=== PATIENT | male | born 1965 | race Caucasian/White ===

== ENCOUNTER 2016-11-01 15:02 | Emergency (ER) | payer BC ==
[~2016-11-01] VITALS: Ht 188 cm; Wt 172.6 kg
[~2016-11-01 15:02] MED LIST: AMLO5TAB PO; ASPI-917 PO; DIAZ5TAB PO; Gabapentin PO; HYDR-4072 PO; HYDROCHLOROTHIAZIDE PO; LISINOPRIL PO; MELO-267 PO; MULT1TAB77 PO; OXYC-426 PO; OXYC-544 PO; POLY17PO6 PO
[2016-11-01 15:03] VITALS: TEMP 98.2; Ht 188 cm; Wt 172.6 kg
--- OUTSIDE RECORDS SUMMARY | 2016-11-01 15:06 | XMS REPORT | Continuity of Care Document ---
Author Author [facility] Organization [facility] Address Unknown Phone Unavailable Support Name Relationship Address Phone ALYSON DORSEY MD Caregiver [address] [facility] [address] [place] [phone] NANI ANTHONY MD Caregiver [address] [facility] [address] [place], [place] [id number] STEPHON KNIGHT Next Of Kin [address] [place], [place] [address] Insurance Providers Payer Name Policy Number Subscriber Name Relationship [employer] Other [id number] Zaira Knight 17 Self Advance Directives Directive Response Recorded Date/Time Advanced Directives Type None 12/24/13 5:56am Ordered Resuscitation Status Full Code 12/23/13 2:47pm Chief Complaint and Reason for Visit Chief Complaint RT TOTAL KNEE ARTHROPLASTY Reason for Visit Degenerative arthritis of right knee Obesity, morbid, BMI 40.0-49.9 Problems Medical Problems Problem Onset Date Status Degenerative arthritis of right knee Unknown Active Obesity, morbid, BMI 40.0-49.9 Unknown Active Medications Medication Dose Route Sig Days/Qty Instructions Order Date Discontinued Date Status Amlodipine Besylate 5 Mg PO DAILY 30 Qty 12/23/13 Active Hydrocodone Bit/Acetaminophen 1 Tab PO NEEDED 100 Qty 12/23/13 Discontinued Lisinopril/Hydrochlorothiazide 1 Tab PO TWICE A DAY 60 Qty 12/23/13 Discontinued [Gabapentin] 300 Mg PO TWICE A DAY 28 Qty 12/27/13 Active [Lisinopril/Hydrochlorothiazide] 2 Tab PO DAILY 12/27/13 Active Multivits,Th W-Fe,Other Min 1 Tab PO DAILY 30 Qty 12/27/13 Active Oxycodone HCl 5-15 Mg PO Every 3 Hours PRN BREAKTHROUGH PAIN 60 Qty Active Polyethylene Glycol 3350 17 Gm PO DAILY 30 Days 12/27/13 Active Oxycodone HCl 1 Tab PO EVERY 12 HOURS For PAIN 28 Qty 12/27/13 Active Aspirin 325 Mg PO TWICE A DAY 84 Qty 12/27/13 Active Diazepam 5 Mg PO Every 6 Hours PRN pain or spasm. 30 Qty 12/27/13 Active Social History Social History Problem Response Recorded Date/Time Smoking Status Current some day smoker 12/24/2013 5:57am Chewing Tobacco Status No 12/23/2013 1:45pm Hx Substance Use N HX OF 12/23/2013 1:45pm Hx Alcohol Use Y RARELY 12/23/2013 1:45pm Has the pt used tobacco in the last 12 months Yes 12/24/2013 5:57am Hospital Discharge Instructions Instructions: Care Instructions: Reason for Hospitalization: right total knee replacement I was in the hospital because (patient own words): knee replacement Discharge Diet: Regular Discharge Activity: *Activity as tolerated using walker. *Use CPM at least 3 times a time, no more then 3 hours at a time for comfort. *Ice pack to knee for comfort. *Continue to stay active once home to prevent blood clots and pneumonia. Follow Up Appointments: 01/15/14 AT 9:30 AM FOR RT TKA WITH ( ) 12/30/13 AT 11:45AM FOR OUTPATIENT PHYSICAL THERAPY WITH PINNACLE Wound/Incision Care: May shower however do not soak in a tub. Leave dressing on until doctor appoinment, doctor will remove dressing. Durable Medical Equipment: Walker and CPM machine Notify Physician If: Call doctor if you notice drainage from site, more pain then usual, fever present, or more redness and swelling. Condition at time of discharge: Good Care Plan Discharge Patient: Goal: Pain is contolled Patient Instructions: see patient instructions Increase cardio excercise Patient Instructions: see patient instructions 1.Chest pain, difficulty breathing, fever>100.5 degrees, chills, heart rate >100, confusion, or persistent nausea/vomitting. 2.Severe pain, swelling, redness, or warmth in either of your legs. 3.During office hours, call [phone] 4. After hours, please call [facility] at [phone], and have the pill machine operator page your Surgeon IN THE EVENT OF AN EMERGENCY, seek medical care at the nearest Emergency Room Condition at time of discharge: Good Care Plan Discharge Patient: Goal: Maximum functional status Patient Instructions: see patient instructions Plan of Care Discharge Date 12/29/13 11:24am Disposition 01 DISCHARGED HOME, SELF-CARE Instructions[place] [facility] [place] Prescriptions See Medications Section Functional Status Query Response Date Recorded Physical Hygiene Self December 29, 2013 10:41am Disabilities None December 29, 2013 10:41am Devices Used Walker December 29, 2013 10:41am Dressing Self December 29, 2013 10:41am Ambulation Self December 29, 2013 10:41am Diet Self December 29, 2013 10:41am Mental Status Alert Oriented December 29, 2013 10:41am Disabilities None December 29, 2013 10:41am Devices Used Walker December 29, 2013 10:41am Physical Hygiene Self December 29, 2013 10:41am Dressing Self December 29, 2013 10:41am Ambulation Self December 29, 2013 10:41am Diet Self December 29, 2013 10:41am Allergies, Adverse Reactions, Alerts Allergen Type Severity Reaction Status Last Updated Penicillin Allergy Intermediate RASH Active 12/24/13 Immunizations Name Given Type Hx Influenza Vaccination Y 06/2013 Historical Hx Pneumococcal Vaccination No Historical Hx Influenza Vaccination Y 06/2013 Historical Vital Signs Acute Vital Signs Vital Response Date/Time Temperature (Fahrenheit) 96.2 deg F (96.8 - 99.1) Temperature (Calculated Celsius) 35.51996 degrees C (36.0 - 37.3) Temperature Source Oral Pulse Rate (adult) 92 bpm (60 - 100) Respiratory Rate 20 breaths/min (10 - 20) Height 6 ft 2 in Weight 361 lb Body Mass Index 46.0 kg/m^2 Results Test Source Date Result Interp. Ref. Range Comments Activated Partial Thromboplast Time December 16, 2013 5:45pm 31.7 SEC N 24- 36 Alanine Aminotransferase (ALT/SGPT) November 22, 2007 5:30am 25 U/L DN 21- 72 Albumin November 22, 2007 5:30am 3.6 G/DL N 3.5-5.0 Albumin/Globulin Ratio November 22, 2007 5:30am 1.1 RATIO N 1.1-2.2 Alkaline Phosphatase November 22, 2007 5:30am 64 U/L N 38-126 Amylase Level November 19, 2007 9:13am 45 U/L N 30-110 Anion Gap December 28, 2013 5:10pm 7 MEQ/L N 5-15 Aspartate Amino Transf (AST/SGOT) November 22, 2007 5:30am 29 U/L DN 14-59 BUN/Creatinine Ratio December 28, 2013 5:10pm 13 RATIO N 6-26 Band Neutrophils # November 22, 2007 5:30am 0.0 T/MM3 - Band Neutrophils % November 22, 2007 5:30am 0.0 % N 0-6 Basophils # (Auto) December 27, 2013 4:35am 0.1 T/MM3 N 0-0.2 Basophils # (Manual) November 22, 2007 5:30am 0.1 T/MM3 N 0-0.2 Basophils % (Manual) November 22, 2007 5:30am 2.0 % N 0-2 Basophils (%) (Auto) December 27, 2013 4:35am 0.5 % N 0-2 Blood Urea Nitrogen December 28, 2013 5:10pm 12.0 MG/DL N 9-20 C-Reactive Protein November 22, 2007 5:30am 24.6 MG/L H 3-10 Calcium Level December 28, 2013 5:10pm 8.8 MG/DL N 8.4-10.2 Calculated Osmolality December 28, 2013 5:10pm 265 MOSM/KG N 261-280 Carbon Dioxide Level December 28, 2013 5:10pm 33 MEQ/L H 22-30 Chemistry Specimen Hemolysis December 28, 2013 5:10pm < 15 0-25 0-25: No Hemolysis.26-70: Slight Hemolysis - can falsely elevate K and Urine Protein. 71-285: Moderate Hemolysis - can falsely elevate K, Troponin I, CA 19-9, PTH, CSF GLucose, and Urine Protein, and can falsely decrease Phenytoin. 286-999: Gross Hemolysis - can falsely elevate K, Troponin I, CA 19-9, PTH, CSF Glucose, and Urine Protine, and can falsely decrease Phenytoin. Recommend specimen recollection. Chloride Level December 28, 2013 5:10pm 97 MEQ/L L 98-107 Conjugated Bilirubin November 19, 2007 9:13am 0.0 MG/DL N 0.0-0.3 Creatinine December 28, 2013 5:10pm 0.9 MG/DL N 0.8-1.5 Eosinophils # (Auto) December 27, 2013 4:35am 0.5 T/MM3 N 0-0.5 Eosinophils # (Manual) November 22, 2007 5:30am 0.1 T/MM3 N 0-0.5 Eosinophils % (Manual) November 22, 2007 5:30am 1.0 % N 0-4 Eosinophils (%) (Auto) December 27, 2013 4:35am 4.7 % H 0-4 Erythrocyte Sedimentation Rate December 16, 2013 5:45pm 9 MM/HR N 0-15 Globulin November 22, 2007 5:30am 3.3 G/DL N 2-3.6 Glomerular Filtration Rate Calc December 28, 2013 5:10pm 90 - Glucose Level December 28, 2013 5:10pm 108 MG/DL N 75-110 Hematocrit December 27, 2013 4:35am 35.2 % L 41-53 Hemoglobin December 27, 2013 4:35am 11.8 GM/DL L 13.5-17.5 Icterus Index December 28, 2013 5:10pm < 2 0-7 Immature Granulocyte # (Auto) December 27, 2013 4:35am 0.12 T/MM3 H 0.00- 0.03 Immature Granulocyte % (Auto) December 27, 2013 4:35am 1.3 % H 0.0-0.5 Lab Scanned Report December 16, 2013 8:09pm LAB TEST FORM REQUEST [id number] - Lipase November 19, 2007 9:13am 36 U/L N 23-300 Lymphocytes # (Auto) December 27, 2013 4:35am 2.7 T/MM3 N 1-4.8 Lymphocytes # (Manual) November 22, 2007 5:30am 2.3 T/MM3 N 1-4.8 Lymphocytes % (Manual) November 22, 2007 5:30am 37.0 % N 23-45 Lymphocytes (%) (Auto) December 27, 2013 4:35am 28.1 % N 23-45 MRSA Specimen Source November 19, 2013 12:50pm Nasal - Mean Corpuscular Hemoglobin December 27, 2013 4:35am 30.1 UUG N 26-34 Mean Corpuscular Hemoglobin Concent December 27, 2013 4:35am 33.5 GM/DL N 31 -37 Mean Corpuscular Volume December 27, 2013 4:35am 89.8 UM3 N 80-100 Mean Platelet Volume December 27, 2013 4:35am 9.7 UM3 N 9.4-12.4 Methicillin-Resist S.aureus DNA PCR November 19, 2013 12:50pm Negative - Monocytes # (Auto) December 27, 2013 4:35am 1.1 T/MM3 H 0-0.8 Monocytes # (Manual) November 22, 2007 5:30am 0.5 T/MM3 N 0-0.8 Monocytes % (Manual) November 22, 2007 5:30am 8.0 % N 0-9.0 Monocytes (%) (Auto) December 27, 2013 4:35am 11.5 % H 0-9.0 Neutrophils # (Auto) December 27, 2013 4:35am 5.1 T/MM3 N 1.8-7.7 Neutrophils # (Manual) November 22, 2007 5:30am 3.3 T/MM3 N 1.8-7.7 Neutrophils % (Manual) November 22, 2007 5:30am 52.0 % N 33-66 Neutrophils (%) (Auto) December 27, 2013 4:35am 53.9 % N 33-66 Platelet Count December 27, 2013 4:35am 224 T/MM3 N 130-400 Potassium Level December 28, 2013 5:10pm 4.5 MEQ/L DN 3.6-5 Prothromb Time International Ratio December 16, 2013 5:45pm 0.95 N 0.81- 1.09 THERAPUTIC RANGE=2.00-3.00 FOR ANTI-THROMBOSIS THERAPUTIC RANGE=2.50- 3.50 FOR IMPLANTED VALVE RDW Standard Deviation December 27, 2013 4:35am 43.2 FL N 36.9-50.2 Red Blood Count December 27, 2013 4:35am 3.92 M/MM3 L 4.50-5.90 Sodium Level December 28, 2013 5:10pm 137 MEQ/L N 134-144 Total Bilirubin November 22, 2007 5:30am 0.6 MG/DL N 0.2-1.3 Total Protein November 22, 2007 5:30am 6.8 G/DL N 6.3-8.2 Turbidity December 28, 2013 5:10pm < 20 0-20 Unconjugated Bilirubin November 19, 2007 9:13am 1.3 MG/DL H 0.0-1.1 Urine Amorphous Urates November 19, 2007 11:58am Moderate - Has specimen been collected/obtained? Y Urine Bacteria December 16, 2013 5:45pm Trace H - Urine Bilirubin December 16, 2013 5:45pm Negative - Urine Blood December 16, 2013 5:45pm 2+ H - Urine Collection Type December 16, 2013 5:45pm Voided-not cc-midstr - Urine Color December 16, 2013 5:45pm Yellow - Urine Glucose (UA) December 16, 2013 5:45pm Negative - Urine Ketones December 16, 2013 5:45pm Negative - Urine Leukocyte Esterase December 16, 2013 5:45pm Negative - Urine Mucus December 16, 2013 5:45pm Present - Urine Nitrite December 16, 2013 5:45pm Negative - Urine Protein December 16, 2013 5:45pm Negative - Urine RBC December 16, 2013 5:45pm 1-3 /HPF - Urine Specific [place] December 16, 2013 5:45pm >=1.030 H - Urine Squamous Epithelial Cells December 16, 2013 5:45pm 0-5 - Urine Turbidity December 16, 2013 5:45pm Sl cloudy - Urine Urobilinogen December 16, 2013 5:45pm 0.2 EU/DL - Urine WBC December 16, 2013 5:45pm 1-3 /HPF - Urine pH December 16, 2013 5:45pm 5.5 - White Blood Count December 27, 2013 4:35am 9.5 T/MM3 N 4.5-11.0 Name: ZAIRA KNIGHT Unit #: [id number] : [id number] Sex: M Loc / Svc: MED DOS: Signed Report #: [id number] DIAGNOSTIC IMAGING REPORT TYPE OF EXAM: US VENOUS DUPLEX, LOWER EXT RT Dictated By: BEVERLY HATHAWAY MD INDICATION: ITS.REASON: SWELLING AND PAIN US VENOUS DUPLEX, LOWER EXT RT: Comparison: None Findings: There is no evidence for acute deep venous thrombosis in the right thigh. Specifically, serial graded compression was performed from the inguinal ligament to the popliteal bifurcation, on the right thigh, demonstrating appropriate compressibility of the deep venous system. In addition, color and pulsed Doppler demonstrate appropriate spontaneous flow, variation with respiration, and augmentation with calf compression. At the ankle, normal flow is identified in the posterior tibial veins; these vessels are also normal in caliber. Impression: No evidence of acute DVT in the right lower limb. . Procedures Procedure Status Date Provider(s) Total knee arthroplasty completed 12/24/13 NANI ANTHONY MD Encounters Encounter Location Date/Time Discharged Inpatient [facility] 12/24/13 5:30am Registered Clinic [facility] 12/16/13 5:32pm Registered [facility] 11/19/13 12:47pm Recent Diagnosis Degenerative arthritis of right knee Obesity, morbid, BMI 40.0-49.9
--- OUTSIDE RECORDS SUMMARY | 2016-11-01 15:06 | XMS REPORT ---
Author Evonne Hendrix Organization [employer] Address Unknown Phone Unavailable Care Team Providers Care Manager Finance Name Role Phone Evonne Infante CP Unavailable Allergies, Adverse Reactions, Alerts Substance Reaction Event Type Penicillin G Potassium Info Not Available Drug Allergy Problems Problem Type Condition Code Onset Dates Condition Status Problem Osteoarthritis M19.90 Active Problem HTN (hypertension) I10 Active Problem Insomnia G47.00 Active Assessment Encounter for examination required by Department of Transportation (DOT) Z02.89 Active Medications Medication Code System Code Instructions Start Date End Date Status Dosage [place] [facility] [address]-94 5-325 MG Orally every 6 hrs 1 tablet as needed Zolpidem Tartrate [facility] [address]-64 10 MG Orally Once a day 1 tablet at bedtime as needed Atenolol [facility] [address]-18 50 MG Orally Once a day 1 tablet Lisinopril-Hydrochlorothiazide [facility] [address]-74 20-12.5 MG November 27, 2012 Jun 04, 9999 take 1 tablet by oral route once daily Amlodipine Besylate [facility] [address]-55 5 MG Orally Once a day December 23, 2015 1 tablet Procedures Procedure Coding System Code Date DOT Physical CPT-4 99574 Feb 18, 2016 UA- PART OF DOT CPT-4 00087 Feb 18, 2016 Vital Signs Date/Time: Feb 18, 2016 BMI 45.49 Index Weight 364 lbs Height 6 ft 3 in in Blood Pressure Diastolic 84 mm Hg Blood Pressure Systolic 138 mm Hg Cardiac Monitoring Heart Rate 76 /min Temperature 98.5 F Oximetry 98 % Respiratory Rate 18 /min Results Name Result Date Reference Range Unit Abnormality Flag Urinalysis Complete DOT ----Glucose [id number] ----Protein neg [id number] ----Blood neg [id number] ----S.P [place] 1.025 [id number] Summary Purpose [employer] Submission
--- OUTSIDE RECORDS SUMMARY | 2016-11-01 15:06 | XMS REPORT ---
Author Oswaldo Rollins [facility] [employer] Address Unknown Phone Unavailable Care Team Providers Care Career Development Engineer Name Role Phone Oswaldo Pulliam CP Unavailable Allergies No Known Allergies Problems Problem Type Condition Code Onset Dates Condition Status Problem Osteoarthritis M19.90 Active Problem HTN (hypertension) I10 Active Problem Insomnia G47.00 Active Medications Medication Code System Code Instructions Start Date End Date Status Dosage Zolpidem Tartrate [facility] [address]-00 10 MG Orally Once a day 1 tablet at bedtime as needed Results No Known Results Summary Purpose [employer] Submission
--- OUTSIDE RECORDS SUMMARY | 2016-11-01 15:06 | XMS REPORT ---
Author Author Evonne Infante Organization [facility] Address [address] [place], [place] [id number] Care Team Providers Care Pbx Mechanic Name Role Phone Evonne Infante Unavailable [phone] PROBLEMS Type Condition ICD9-CM Code YTC18-UG Code Onset Dates Condition Status SNOMED Code Problem Insomnia G47.00 Active 081637931 Problem Osteoarthritis M19.90 Active 159816090 Assessment Flu-like symptoms R68.89 Jun, Active 93786670 Problem HTN (hypertension) I10 Active 51301193 Assessment Acute maxillary sinusitis J01.00 Jun, Active 29855809 ALLERGIES Substance Reaction Event Type Date Status Penicillin G Potassium hives Drug Allergy Jun, Active SOCIAL HISTORY No smoking Hx information available PLAN OF CARE VITAL SIGNS Height 6 ft 3 in in 2016-06-13 Weight 372 lbs 2016-06-13 BMI 46.49 kg/m2 2016-06-13 Temperature 98.6 degrees Fahrenheit 2016-06-13 Heart Rate 98 /min 2016-06-13 Oximetry 94 % 2016-06-13 Blood pressure systolic 152 mm Hg 2016-06-13 Blood pressure diastolic 98 mm Hg 2016-06-13 MEDICATIONS Medication Instructions Dosage Frequency Start Date End Date Duration Status Atenolol 50 MG Orally Once a day 1 tablet 24h Active [place] 5-325 MG Orally every 6 hrs 1 tablet as needed 6h 30 days Active Lisinopril-Hydrochlorothiazide 20-12.5 MG take 1 tablet by oral route once daily Nov, Active Doxycycline Monohydrate 100 MG Orally every 12 hrs 1 capsule 12h Jun, Jun, 10 days Active Amlodipine Besylate 5 MG Orally Once a day 1 tablet 24h 30 Active Zolpidem Tartrate 10 MG Orally Once a day 1 tablet at bedtime as needed 24h 30 days Active RESULTS Name Result Date Reference Range Influenza A&B 2016-06-13 Influenza A IgM NEG Influenza B IgM NEG PROCEDURES Procedure Date Ordered Related Diagnosis Body Site INFLUENZA ASSAY WOPTIC Jun 13, 2016 OFFICE VISIT EST PATIENT LEVEL 4 Jun 13, 2016 IMMUNIZATIONS No Known Immunizations
--- OUTSIDE RECORDS SUMMARY | 2016-11-01 15:06 | XMS REPORT | Summary of Care ---
Author Author Valerie Owen, Kerwin Organization Unknown Address Unknown Phone Unavailable Care Team Providers Care Foreign Broadcast Specialist Name Role Phone Kerwin Padilla M.D. Unavailable Unavailable Kerwin Padilla PP Unavailable Unavailable Unavailable Functional Status Functional Status Health Issues* Name Dates Details Functional status health issues are not documented Status: Cognitive Status Health Issues* Name Dates Details Cognitive status health issues are not documented Status: Problems Name Dates Details Pneumonia (486, J18.9) Status: Active Urinary symptom or sign (788.99, R39.9) Status: Active Lumbago (724.2, M54.5) Status: Active Knee pain, chronic, left (719.46, M25.562) Status: Active Chronic knee pain, right (719.46, M25.561) Status: Active Insomnia (780.52, G47.00) Status: Active High risk medication use (V58.69, Z79.899) Status: Active Essential hypertension, benign (401.1, I10) Status: Active Osteoarthritis of both knees, unspecified osteoarthritis type (715.96, M17.0) Status: Active Elevated liver enzymes (790.5, R74.8) Status: Active Tobacco abuse (305.1, Z72.0) Status: Active Morbid obesity (278.01, E66.01) Status: Active Medications Name Dates Details Hydrocodone-Acetaminophen 5-325 MG Oral Tablet TAKE 1 TABLET EVERY 6 HOURS NEEDED.Max 4 per day*MUST LAST 30 DAYSMAY FILL ON OR AFTER 06/02/15* Quantity: 120 Kerwin Padilla M.D.* Started 25-Mar-2015 ActiveZolpidem Tartrate 10 MG Oral Tablet TAKE 1 TABLET AT BEDTIME NEEDED FOR SLEEP.*MUST LAST 30 DAYS*MAY FILL ON OR AFTER 06/02/15* * Quantity: 30 Refills: 0 Kerwin Padilla M.D.* Started 25-Mar-2015 ActiveVoltaren 1 % Transdermal Gel APPLY 4 GM OF GEL TO AFFECTED AREA TWICE DAILY. DO NOT APPLY MORE THAN 16 GM DAILY TO ANY ONE AFFECTED JOINT. * Quantity: 1 Refills: 3 Kerwin Padilla M.D.* Started 25-Mar-2015 [id number] GM Tube Lisinopril-Hydrochlorothiazide 20-12.5 MG Oral Tablet TAKE ONE TABLET BY MOUTH EVERY MORNING AND EVERY EVENING * Quantity: 60 Refills: 6 Kerwin Padilla M.D.* Started 25-Mar-2015 ActiveEvzio 0.4 MG/0.4ML Injection Solution Auto-injector INJECT 0.4MG SC/IM Q 2-3MIN NEEDED PER OVERDOSE * Quantity: 1 Refills: 0 Kerwin Padilla M.D.* Started 25-Mar-2015 Active0.4 ML Package (2 Packages) Atenolol 50 MG Oral Tablet TAKE 1 TABLET DAILY. * Quantity: 30 Refills: 6 Kerwin Padilla M.D.* Started 04-May-2015 Active Allergies and Adverse Reactions Name Dates Details Penicillins Status: Active Past Medical History Name Dates Details History of hypertension (V12.59, Z86.79) Status: Resolved History of Knee joint replacement status (V43.65, Z96.659) Status: Resolved History of Knee pain (719.46, M25.569) Status: Resolved History of rheumatoid arthritis (V13.4, Z87.39) Status: Resolved History of seasonal allergies (V15.09, Z88.9) Status: Resolved History of Stomach problems (536.9, K31.9) Status: Resolved Procedures Procedure Dates Details History of Knee Surgery Hepatitis Panel (4) [id number] Ordered:04-May-2015 Immunization Name Dates Details Fluvirin Intramuscular Injectable Administered on:27-Mar-2015 Family History Grandmother* Name Dates Details Family history of myocardial infarction (V17.3, Z82.49) Status: Active Grandmother* Name Dates Details Family history of cerebrovascular accident (CVA) (V17.1, Z82.3) Status: Active Grandfather* Name Dates Details Family history of Automobile accident (E819.9, V89.2XXA) Status: Active Social History Name Dates Details Smoking Status* Current some day smoker Vital Signs Date Test Result Details 04-May-2015 10:50 BP Systolic 156 mm[Hg] Status: BP Diastolic 102 mm[Hg] Status: Heart Rate 88 /min Status: Respiration Rate 20 /min Status: Height 74 in Status: Weight 374 lb Status: O2 SAT 97 % Status: Body Mass Index Calculated 48.02 kg/m2 Status: Body Surface Area Calculated 2.84 m2 Status: Results Date Description Value Details 04-May-2015 10:04 CBC w/ Auto Diff 7150 Comments: Fastin hours WBC 9.2 K/uL (Better) Range: 4.5-11.0 RBC 5.47 mil/uL (Above high threshold) Range: 4.20-5.40 HGB 16.1 g/dL (Better) Range: 14.0-18.0 HCT 48.8 % (Better) Range: 42.0-53.0 MCV 89.2 fL (Better) Range: 80.0-99.0 MCH 29.4 pg (Better) Range: 27.3-32.5 MCHC 32.9 % (Better) Range: 32.0-36.0 RDW 14.0 % (Better) Range: 11.6-14.8 PLATELETS 260 K/uL (Better) Range: 150-400 MPV 7.2 fL (Better) Range: 6.0-11.0 %NEUTRO 61.4 % (Better) Range: 37.0-80.0 %LYMPHS 29.8 % (Better) Range: 13.0-50.0 %MONO 4.2 % (Better) Range: 0.0-12.0 %EOS 1.9 % (Better) Range: 0.0-7.0 %BASO 0.6 % (Better) Range: 0.0-2.5 %LENNIE 2.2 % (Better) Range: 0.0-5.0 NEUTRO 5.6 K/uL (Better) Range: 2.0-6.9 LYMPHS 2.7 K/uL (Better) Range: 0.6-3.4 MONOS 0.4 K/uL (Better) Range: 0.0-0.9 EOS 0.2 K/uL (Better) Range: 0.0-0.7 BASO 0.1 K/uL (Better) Range: 0.0-0.2 10:31 Comprehensive Metabolic Panel 1212 Comments: Fastin hours SODIUM 137 mmol/L (Better) Range: 133-144 POTASSIUM 3.8 mmol/L (Better) Range: 3.5-5.1 CHLORIDE 101 mmol/L (Better) Range: 98-110 CARBON DIOXIDE 25.1 mmol/L (Better) Range: 23.0-33.0 ANION GAP 11 mmol/L (Better) Range: 6-16 BUN 9 mg/dL (Better) Range: 7-18 CREATININE, SERUM 0.83 mg/dL (Better) Range: 0.70-1.30 Comments: Please note new reference ranges effective 2014.----- BUN:CREATININE RATIO 11 (Better) EST GFR, >60 ml/min (Better) Range: >60 EST GFR, NON-AFR TUVALUAN >60 ml/min (Better) Range: >60 Comments: EST GFR is reported in ml/min per 1.73 m2 of body surface area. For -Kosovan, please multiple result by 1.2.----- GLUCOSE 93 mg/dL (Better) Range: 70-100 ALK PHOSPHATASE 78 U/L (Better) Range: 46-116 TOTAL BILIRUBIN 0.80 mg/dL (Better) Range: 0.20-1.00 AST 59 U/L (Above high threshold) Range: 8-35 ALT 94 U/L (Above high threshold) Range: 16-63 Comments: Please note new reference ranges. Effective 08/14/2014.----- ALBUMIN 3.7 g/dL (Better) Range: 3.4-5.0 TOTAL PROTEIN 8.0 g/dL (Better) Range: 6.4-8.2 A/G RATIO 0.9 units (Below low threshold) Range: 1.0-1.8 CALCIUM 8.6 mg/dL (Better) Range: 8.5-10.1 10:31 LIPID PROFILE 1184 Comments: Fastin hours CHOLESTEROL 147 mg/dL (Better) Range: <200 TRIGLYCERIDES 116 mg/dL (Better) Range: 30-200 HDL Cholesterol 54 mg/dL (Better) Range: >39 NON HDL CHOLESTEROL 93 (Better) CARDIAC RSK FACTOR 2.7 units (Below low threshold) Range: 4.4-5.0 LDL - CALCULATED 70 mg/dL (Better) Range: 0-130 10:51 THYROID STIM. HORMONE 3602 Comments: Fastin hours THYROID STIM. HORMONE 0.496 uIU/mL (Below low threshold) Range: 0.550- 4.780 Comments: PLEASE NOTE: Patients undergoing fuorescein dye angiography within the last 72 hours can produce falsely depressed TSH values with current methodology.No established reference ranges for infants and children <2 years of age----- Plan of Care Planned Observations* Name Dates Details Planned Goals not documented Goal Planned Encounters* Appointment; Provider: Kerwin Padilla On 29-Jun-2015 09:15 Instructions * Instructions not documented Encounters Appointment; Kerwin Padilla Encounter Diagnosis: Problem not documented On 04-May-2015 10:15 Appointment; Kerwin Padilla Encounter Diagnosis: Problem not documented On 25-Mar-2015 11:00 Appointment; Oswaldo Sweeney Encounter Diagnosis: Problem not documented On 31-Oct-2014 11:15 Appointment; Farideh Babcock Encounter Diagnosis: Problem not documented On 29-Jul-2014 12:45
--- OUTSIDE RECORDS SUMMARY | 2016-11-01 15:06 | XMS REPORT ---
Author Author Mame Pulliam Organization [employer] Address Unknown Phone Unavailable Care Team Providers Care Head Stock Transfer Clerk Name Role Phone Mame Pulliam CP Unavailable Allergies, Adverse Reactions, Alerts Substance Reaction Event Type Penicillin G Potassium Info Not Available Drug Allergy Problems Problem Type Condition ICD-9 Code Onset Dates Condition Status Assessment Health examination of defined subpopulation V70.5 Active Problem Health examination of defined subpopulation V70.5 Active Medications Medication Code System Code Instructions Start Date End Date Status Dosage Lisinopril-Hydrochlorothiazide NDC 0 20-12.5 mg November 27, 2012 Jun 04, 9999 take 1 tablet by oral route once daily Procedures Procedure Coding System Code Date UA- PART OF DOT CPT-4 99509 November 24, 2014 DOT PHYSICAL CPT-4 95735 November 24, 2014 Vital Signs Date/Time: November 24, 2014 BMI 45.94 Index Weight 367.6 lbs Height 75 in Blood Pressure Diastolic 108 mm Hg Blood Pressure Systolic 144 mm Hg Cardiac Monitoring Heart Rate 88 /min Temperature 98.1 F Oximetry 97 % Respiratory Rate 20 /min Results No Known Results Summary Purpose [employer] Submission
--- OUTSIDE RECORDS SUMMARY | 2016-11-01 15:06 | XMS REPORT | Summary of Care ---
Author Author Farideh Babcock APRN Organization Unknown Address [address] [place], [place] [id number] Phone Unavailable Care Team Providers Care Liberal Arts Teacher Name Role Phone Farideh Babcock APRN Unavailable Unavailable Pt Confirmed No Assigned PCP PP Unavailable Unavailable Unavailable Functional Status Functional Status Health Issues* Name Dates Details Functional status health issues are not documented Status: Cognitive Status Health Issues* Name Dates Details Cognitive status health issues are not documented Status: Problems Name Dates Details Cough (786.2, R05) Status: Active Pneumonia (486, J18.9) Status: Active Medications Name Dates Details Levofloxacin 500 MG Oral Tablet TAKE 1 TABLET DAILY. Quantity: 7 Farideh Babcock MEDICAL RECEPTIONIST* Started 29-Jul-2014 Ended 05-Aug-2014 Active Allergies and Adverse Reactions Name Dates Details Penicillins Status: Active Past Medical History Name Dates Details History of hypertension (V12.59, Z86.79) Status: Resolved Procedures Procedure Dates Details Procedures not documented Immunization Name Dates Details Immunizations not documented Social History Smoking Status* Unknown if ever smoked Vital Signs Date Test Result Details 29-Jul-2014 12:54 BP Systolic 137 mm[Hg] Status: BP Diastolic 97 mm[Hg] Status: Heart Rate 102 /min Status: Temperature 97.7 f Status: O2 SAT 95 % Status: Results Date Description Value Details 29-Jul-2014 13:44 XRay CHEST-PA & LAT Comments: Exam Date: 13: 26Dictation Date: 13:44 X CHEST PA & LAT (Better) 13:46 INFLUENZA A/B ANTIGEN 5320 Comments: *Negative results do not exclude Influenza viral infection and could be confirmed with viral culture or Influenza molecular assays. Physician order would be required.* *INFLUENZA A/B ANTIGEN Negative (Better) Range: Negative Plan of Care Planned Observations* Name Dates Details Planned Goals not documented Goal Instructions * Instructions not documented Encounters Appointment; Farideh Babcock Encounter Diagnosis: Problem not documented On 29-Jul-2014 12:45
--- OUTSIDE RECORDS SUMMARY | 2016-11-01 15:06 | XMS REPORT ---
Author Author Oswaldo Pulliam Organization [facility] Address [address] [place], [place] [id number] Care Team Providers Care Harnessmaker Apprentice Name Role Phone Oswaldo Pulliam Unavailable [phone] PROBLEMS Type Condition ICD9-CM Code LUR10-YG Code Onset Dates Condition Status SNOMED Code Problem Eczema L30.9 Active 45431052 Problem Erectile dysfunction N52.9 Active 709201055 Problem HTN (hypertension) I10 Active 26276549 Problem Insomnia G47.00 Active 975461406 Problem Osteoarthritis M19.90 Active 345725920 ALLERGIES Unknown Allergies SOCIAL HISTORY No smoking Hx information available PLAN OF CARE VITAL SIGNS MEDICATIONS Medication Instructions Dosage Frequency Start Date End Date Duration Status Zolpidem Tartrate 10 MG Orally Once a day 1 tablet at bedtime as needed 24h 30 days Active RESULTS No Results PROCEDURES No Known procedures IMMUNIZATIONS No Known Immunizations
--- OUTSIDE RECORDS SUMMARY | 2016-11-01 15:06 | XMS REPORT | Summary of Care ---
Author Author Valerie Owen, Kerwin Organization Unknown Address Unknown Phone Unavailable Care Team Providers Care Aviation Technician Aircraft Name Role Phone Kerwin Padilla M.D. Unavailable [...] Status: Active Lumbago (724.2, M54.5) Status: Active Essential hypertension, benign (401.1, I10) Status: Active Knee pain, chronic, left (719.46, M25.562) Status: Active Chronic knee pain, right (719.46, M25.561) Status: Active Insomnia (780.52, G47.00) Status: Active Tobacco abuse (305.1, Z72.0) Status: Active Morbid obesity (278.01, E66.01) Status: Active High risk medication use (V58.69, Z79.899) Status: Active Medications Name Dates Details Hydrocodone-Acetaminophen 5-325 MG Oral Tablet TAKE 1 TABLET EVERY 6 HOURS NEEDED.*Max 4 per day* Quantity: 120 Kerwin Paidlla M.D.* Started 25-Mar-2015 ActiveZolpidem Tartrate 10 MG Oral Tablet TAKE 1 TABLET AT BEDTIME NEEDED FOR SLEEP.*MUST LAST 30 DAYS* * Quantity: 30 Refills: 0 Kerwin Padilla M.D.* Started 25-Mar-2015 ActiveVoltaren 1 % Transdermal Gel APPLY 4 GM OF GEL TO AFFECTED AREA TWICE DAILY. DO NOT APPLY MORE THAN 16 GM DAILY TO ANY ONE AFFECTED JOINT. * Quantity: 1 Refills: 3 Kerwin Padilla M.D.* Started 25-Mar-2015 [id number] GM Tube Lisinopril-Hydrochlorothiazide 20-12.5 MG Oral Tablet TAKE ONE TABLET BY MOUTH EVERY MORNING AND EVERY EVENING * Quantity: 60 Refills: 6 Kerwin Padilla M.D.* Started 25-Mar-2015 ActiveEvzio 0.4 MG/0.4ML Injection Solution Auto-injector INJECT 0.4MG SC/IM Q 2-3MIN NEEDED PER OVERDOSE * Quantity: 1 Refills: 0 Kerwin Padilla M.D.* Started 25-Mar-2015 Active0.4 ML Package (2 Packages) Allergies and Adverse Reactions Name Dates Details [...] Procedure Dates Details History of Knee Surgery CBC w/ Auto Diff 7150 Ordered:31-Mar-2015 Comprehensive Metabolic Panel 1212 Ordered:31-Mar-2015 LIPID PROFILE 1184 Ordered:31-Mar-2015 THYROID STIM. HORMONE 3602 Ordered:31-Mar-2015 Immunization Name Dates Details Fluvirin Intramuscular Injectable [...] smoker Vital Signs Date Test Result Details No Known Vitals to report Results Date Description Value Details Results not documented Plan of Care Planned Observations* Name Dates Details Planned Goals not documented Goal Instructions * Instructions not documented Encounters Appointment; Kerwin Padilla Encounter Diagnosis: Problem not documented On 25-Mar-2015 11:00 Appointment; Oswaldo Sweeney Encounter Diagnosis: Problem not documented On 31-Oct-2014 11:15 Appointment; Farideh Babcock Encounter Diagnosis: Problem not documented On 29-Jul-2014 12:45
--- OUTSIDE RECORDS SUMMARY | 2016-11-01 15:06 | XMS REPORT | Summary of Care ---
Author Author Oswaldo Sweeney D.O. Organization Unknown Address [address], [place] [id number] Phone Unavailable Care Team Providers Care Adjunct Communications Faculty Member Name Role Phone No Assigned PCP-Pt Confirmed PP Unavailable Unavailable Unavailable Functional Status Functional Status Health Issues* Name Dates Details Functional status health issues are not documented Status: Cognitive Status Health Issues* Name Dates Details Cognitive status health issues are not documented Status: Problems Name Dates Details Cough (786.2, R05) Status: Active Pneumonia (486, J18.9) Status: Active Urinary symptom or sign (788.99, R39.89) Status: Active Lumbago (724.2, M54.5) Status: Active Dysuria (788.1, R30.0) Status: Active Blood in urine (599.70, R31.9) Status: Active Medications Name Dates Details Medication not documented Allergies and Adverse Reactions Name Dates Details Penicillins Status: Active Past Medical History Name Dates Details History of hypertension (V12.59, Z86.79) Status: Resolved Procedures Procedure Dates Details Urinalysis, Reflex to Microscopic or Culture PRN 8005 Ordered:31-Oct-2014 ULTRASOUND RENAL SONO Ordered:31-Oct-2014 Immunization Name Dates Details Immunizations not documented Social History Smoking Status* Unknown if ever smoked Vital Signs Date Test Result Details 31-Oct-2014 11:45 BP Systolic 124 mm[Hg] Status: BP Diastolic 94 mm[Hg] Status: Heart Rate 82 /min Status: O2 SAT 95 % Status: Results Date Description Value Details 31-Oct-2014 11:32 Urinalysis, Reflex to Microscopic or Culture PRN 8005 pH 6.5 (Better) Range: 5.0-7.5 SP GRAVITY 1.025 (Better) Range: 1.010-1.030 APPEARANCE CLEAR (Better) Range: Clear COLOR YELLOW (Better) Range: Straw-Yellow PROTEIN NEGATIVE mg/dL (Better) Range: Negative-Trace GLUCOSE NEGATIVE mg/dL (Better) Range: Negative KETONE NEGATIVE mg/dL (Better) Range: Negative BILIRUB NEGATIVE (Better) Range: Negative BLOOD NEGATIVE (Better) Range: Negative UROBIL 1.0 EU/dL (Better) Range: 0.2-1.0 NITRITE NEGATIVE (Better) Range: Negative LEUK TRACE (Abnormal) Range: Negative 11:32 Urine Microscopic UMIC RBC 11-20 /HPF (Abnormal) Range: 0-2 MUCUS 1+ /LPF (Better) Range: Negative-2+ EPITH 0-2 /HPF (Better) Range: 0-10 Plan of Care Planned Observations* Name Dates Details Planned Goals not documented Goal Instructions * Instructions not documented Encounters Appointment; Oswaldo Sweeney Encounter Diagnosis: Problem not documented On 31-Oct-2014 11:15 Appointment; Farideh Babcock Encounter Diagnosis: Problem not documented On 29-Jul-2014 12:45
--- OUTSIDE RECORDS SUMMARY | 2016-11-01 15:06 | XMS REPORT ---
Author Oswaldo Rollins Organization [employer] Address Unknown Phone Unavailable Care Team Providers Care Lapping Machine Operator Name Role Phone Oswaldo Pulliam CP Unavailable Allergies No Known Allergies Problems Problem Type Condition Code Onset Dates Condition Status Problem Osteoarthritis M19.90 Active Problem HTN (hypertension) I10 Active Problem Insomnia G47.00 Active Medications No Known Medications Results No Known Results Summary Purpose [employer] Submission
--- OUTSIDE RECORDS SUMMARY | 2016-11-01 15:06 | XMS REPORT ---
Author Oswaldo Rollins Organization [employer] Address Unknown Phone Unavailable Care Team Providers Care Admission Nurse Name Role Phone Oswaldo Pulliam CP Unavailable Allergies No Known Allergies Problems Problem Type Condition Code Onset Dates Condition Status Problem Osteoarthritis M19.90 Active Problem HTN (hypertension) I10 Active Problem Insomnia G47.00 Active Medications No Known Medications Results No Known Results Summary Purpose [employer] Submission
--- OUTSIDE RECORDS SUMMARY | 2016-11-01 15:07 | XMS REPORT ---
Author Oswaldo Rollins [facility] [employer] Address Unknown Phone Unavailable Care Team Providers Care Automotive Welder Name Role Phone Oswaldo Pulliam CP Unavailable Allergies, Adverse Reactions, Alerts Substance Reaction Event Type Penicillin G Potassium Info Not Available Drug Allergy Problems Problem Type Condition Code Onset Dates Condition Status Problem Osteoarthritis M19.90 Active Problem HTN (hypertension) I10 Active Problem Insomnia G47.00 Active Assessment Hematuria R31.9 Active Assessment Insomnia G47.00 Active Assessment HTN (hypertension) I10 Active Assessment Osteoarthritis M19.90 Active Medications Medication Code System Code Instructions Start Date End Date Status Dosage Atenolol [facility] [address]-57 50 MG Orally Once a day 1 tablet Lisinopril-Hydrochlorothiazide [facility] [address]-97 20-12.5 MG November 27, 2012 Jun 04, 9999 take 1 tablet by oral route once daily Amlodipine Besylate [facility] [address]-84 5 MG Orally Once a day December 23, 2015 1 tablet Zolpidem Tartrate [facility] [address]-49 10 MG Orally Once a day 1 tablet at bedtime as needed Hydrocodone-Acetaminophen [facility] [address]-85 5-325 MG Orally every 6 hrs December 23, 2015 Jan 22, 2016 1 tablet as needed Procedures Procedure Coding System Code Date OFFICE VISIT EST PATIENT LEVEL 3 CPT-4 01122 Jan 22, 2016 URINALYSIS, AUTO W/SCOPE CPT-4 52567 Jan 22, 2016 Vital Signs Date/Time: Jan 22, 2016 BMI 45.92 Index Weight 367.4 lbs Height 75 in Blood Pressure Diastolic 88 mm Hg Blood Pressure Systolic 138 mm Hg Cardiac Monitoring Heart Rate 66 /min Temperature 98.4 F Respiratory Rate 18 /min Results Name Result Date Reference Range Unit Abnormality Flag Urinalysis with Microscopic ----Epithelial Cells 0-2 [id number] /HPF ----WBC, Urine 0-2 [id number] 0-4 /HPF ----Specific [place] 1.019 20160122 1.003-1.030 ----Bilirubin Negative 20160122 Negative ----Nitrites Negative 20160122 Negative ----Protein Negative 20160122 Negative ----Blood Negative 20160122 Negative ----Urobilinogen 0.2 20160122 <1.0 mg/dL ----pH 5.5 20160122 5.0-8.0 ----RBC, Urine 0-4 [id number] 0-4 /HPF ----Leukocyte Esterase Negative 20160122 Negative ----Appearance Clear 20160122 ----Color Yellow 20160122 ----Glucose, Urine Negative 20160122 Negative ----Ketones Negative 20160122 Negative Summary Purpose [employer]ClinicalWorks Submission
--- OUTSIDE RECORDS SUMMARY | 2016-11-01 15:07 | XMS REPORT ---
Author Oswaldo Rollins Organization [facility] Address [address] [place], [place] [address] Care Team Providers Care Registered Safety Engineer Name Role Phone Heraclio Oswaldo Unavailable [phone] PROBLEMS Type Condition ICD9-CM Code [id number] Code Onset Dates Condition Status SNOMED Code Problem Eczema L30.9 Active 75055112 Problem Erectile dysfunction N52.9 Active 007050529 Problem HTN (hypertension) I10 Active 57226854 Assessment HTN (hypertension) I10 Jul, Active 77634082 Problem Insomnia G47.00 Active 713523119 Problem Osteoarthritis M19.90 Active 246005085 ALLERGIES Substance Reaction Event Type Date Status Penicillin G Potassium hives Drug Allergy Jul, Active SOCIAL HISTORY No smoking Hx information available PLAN OF CARE Activity Details Pending Test Free T4 Pending Test Total T3 3 Months,Reason: VITAL SIGNS Height 6 ft 3 in in 2016-07-18 Weight 375.2 lbs 2016-07-18 BMI 46.89 kg/m2 2016-07-18 Temperature 97.5 degrees Fahrenheit 2016-07-18 Heart Rate 64 /min 2016-07-18 Respiratory Rate 18 /min 2016-07-18 Blood pressure systolic 130 mm Hg 2016-07-18 Blood pressure diastolic 98 mm Hg 2016-07-18 MEDICATIONS Medication Instructions Dosage Frequency Start Date End Date Duration Status Triamcinolone Acetonide 0.5 % Externally Twice a day as needed 1 application to affected area Jul, 30 days Active Atenolol 50 MG Orally Once a day 1 tablet 24h Active Viagra 100 MG Orally Once a day 1 tablet as needed 24h Jul,Jul 05 days Active Zolpidem Tartrate 10 MG Orally Once a day 1 tablet at bedtime as needed 24h 30 days Active Lisinopril-Hydrochlorothiazide 10-12.5 MG TAKE 1 TABLET BY MOUTH EVERY MORNING AND TAKE 1 TABLET EVERY EVENING Active Amlodipine Besylate 5 MG Orally Once a day 1 tablet 24h 30 Active Cecil 5-325 MG Orally every 6 hrs 1 tablet as needed 6h 30 days Active RESULTS Name Result Date Reference Range CBC With Platelet and Differential 2016-07-18 WBC 9.0 4.8-10.8 RBC 5.22 4.60-6.20 HGB 15.0 14.0-18.0 HCT 46.2 42.0-52.0 MCV 88.5 82.0-99.0 MCH 28.7 27.0-32.0 MCHC 32.5 32.0-36.0 RDW 13.6 11.5-14.5 MPV 10.1 8.8-14.8 Platelet Count 269 150-400 Immature Granulocytes 0.6 0.0-1.0 Absolute Neutrophils 5.71 1.90-7.00 Absolute Lymphocytes 2.32 0.80-3.30 Absolute Monocytes 0.73 0.30-1.00 Absolute Eosinophils 0.16 0.00-0.50 Absolute Basophils 0.02 0.00-0.20 Neutrophils 64 51-75 Lymphocytes 26 20-46 Monocytes 8 4-11 Eosinophils 2 0-4 Basophils 0 0-2 Comprehensive Metabolic Panel (CMP) 2016-07-18 Glucose 91 70-99 BUN 10 8-26 Creatinine 0.77 0.72-1.25 Calcium 9.4 8.4-10.2 Sodium 141 135-144 Potassium 3.7 3.5-5.2 Chloride 102 99-111 CO2 27 23-31 Albumin 4.1 3.5-5.0 Bilirubin Total 0.9 0.2-1.2 Alkaline Phosphatase 69 40-150 Protein 7.4 6.1-7.7 ALT (SGPT) 41 0-55 AST (SGOT) 25 5-34 Anion Gap 12 3-20 Globulin 3.3 1.8-4.0 Lipid Panel 2016-07-18 Cholesterol 144 0-199 Triglycerides 251 0-149 HDL Cholesterol 42 40-84 LDL Cholesterol 52 0-130 VLDL Cholesterol 50 0-28 Cardiac Risk 3.4 0.0-5.7 Non-HDL Cholesterol 2016-07-18 Non-HDL Cholesterol 102 0-159 TSH 2016-07-18 TSH 0.30 0.35-4.94 eGFR 2016-07-18 eGFR >60 >60 Venipuncture 2016-07-18 Testosterone 2016-07-18 Testosterone 310 723-285 PROCEDURES Procedure Date Ordered Related Diagnosis Body Site ROUTINE VENIPUNCTURE Jul 18, 2016 ASSAY THYROID STIM HORMONE Jul 18, 2016 OFFICE VISIT EST PATIENT LEVEL 4 Jul 18, 2016 COMPREHEN METABOLIC PANEL Jul 18, 2016 LIPID PANEL Jul 18, 2016 ASSAY OF TOTAL TESTOSTERONE Jul 18, 2016 COMPLETE CBC WAUTO DIFF WBC Jul 18, 2016 IMMUNIZATIONS No Known Immunizations
--- OUTSIDE RECORDS SUMMARY | 2016-11-01 15:07 | XMS REPORT ---
Author Oswaldo Rollins [facility] eClinicalWorks Address Unknown Phone Unavailable Care Team Providers Care Billing And Quality Technician Name Role Phone Oswaldo Pulliam CP Unavailable Allergies No Known Allergies Problems Problem Type Condition Code Onset Dates Condition Status Problem Osteoarthritis M19.90 Active Problem HTN (hypertension) I10 Active Problem Insomnia G47.00 Active Medications Medication Code System Code Instructions Start Date End Date Status Dosage [facility] [address]-69 5-325 MG Orally every 6 hrs 1 tablet as needed Results No Known Results Summary Purpose eClinicalWorks Submission
--- OUTSIDE RECORDS SUMMARY | 2016-11-01 15:07 | XMS REPORT ---
Author Author Veronica uHgo [facility] Address [address] [place], [place] [address] Care Team Providers Care Graduate Assistant Athletic Trainer Name Role Phone Veronica Hugo Unavailable [phone] PROBLEMS Type Condition ICD9-CM Code [id number] Code Onset Dates Condition Status SNOMED Code Problem Eczema L30.9 Active 01526738 Problem Erectile dysfunction N52.9 Active 764341225 Problem HTN (hypertension) I10 Active 81287742 Problem Insomnia G47.00 Active 724694116 Problem Osteoarthritis M19.90 Active 135288342 ALLERGIES Unknown Allergies SOCIAL HISTORY No smoking Hx information available PLAN OF CARE VITAL SIGNS MEDICATIONS Medication Instructions Dosage Frequency Start Date End Date Duration Status [place] 5-325 MG Orally every 6 hrs 1 tablet as needed 6h 30 days Active RESULTS No Results PROCEDURES No Known procedures IMMUNIZATIONS No Known Immunizations
--- OUTSIDE RECORDS SUMMARY | 2016-11-01 15:07 | XMS REPORT ---
Author Oswaldo Rollins [facility] eClinicalWorks Address Unknown Phone Unavailable Care Team Providers Care In Store Marketing Associate Name Role Phone Oswaldo Pulliam CP Unavailable Allergies No Known Allergies Problems Problem Type Condition Code Onset Dates Condition Status Problem Osteoarthritis M19.90 Active Problem HTN (hypertension) I10 Active Problem Insomnia G47.00 Active Medications Medication Code System Code Instructions Start Date End Date Status Dosage [facility] [address]-76 5-325 MG Orally every 6 hrs 1 tablet as needed Results No Known Results Summary Purpose eClinicalWorks Submission
--- OUTSIDE RECORDS SUMMARY | 2016-11-01 15:07 | XMS REPORT ---
Author Author Christa Florez [facility] Address [address] [place], [place] [address] Care Team Providers Care Hogshead Mat Inspector Name Role Phone Christa Florez Unavailable [phone] PROBLEMS Type Condition ICD9-CM Code [id number]-WO Code Onset Dates Condition Status SNOMED Code Problem Eczema L30.9 Active 88782865 Problem Erectile dysfunction N52.9 Active 871754495 Problem HTN (hypertension) I10 Active 93225876 Assessment Routine general medical examination at a health care facility Z00.00 Sep, Active 161036606 Problem Insomnia G47.00 Active 075986932 Problem Osteoarthritis M19.90 Active 177632876 ALLERGIES Unknown Allergies SOCIAL HISTORY No smoking Hx information available PLAN OF CARE VITAL SIGNS MEDICATIONS Medication Instructions Dosage Frequency Start Date End Date Duration Status Amlodipine Besylate 5 MG Orally Once a day 1 tablet 24h 30 Active Lisinopril-Hydrochlorothiazide 10-12.5 MG TAKE 1 TABLET BY MOUTH EVERY MORNING AND TAKE 1 TABLET EVERY EVENING Active Atenolol 50 MG Orally Once a day 1 tablet 24h Active Zolpidem Tartrate 10 MG Orally Once a day 1 tablet at bedtime as needed 24h 30 days Active [place] 5-325 MG Orally every 6 hrs 1 tablet as needed 6h 30 days Active Triamcinolone Acetonide 0.5 % Externally Twice a day as needed 1 application to affected area Jul, 30 days Active RESULTS No Results PROCEDURES Procedure Date Ordered Related Diagnosis Body Site Collection of drug screen September 21, 2016 ASSAY OF BREATH ETHANOL September 21, 2016 IMMUNIZATIONS No Known Immunizations
--- OUTSIDE RECORDS SUMMARY | 2016-11-01 15:07 | XMS REPORT | Summary of Care ---
Author Author Valerie Owen, Kerwin Organization Unknown Address Unknown Phone Unavailable Care Team Providers Care Credit Verifier Name Role Phone Kerwin Padilla M.D. Unavailable [...] NEEDED.*Max 4 per day* Quantity: 120 Kerwin Padilla M.D.* Started 25-Mar-2015 [...] Refills: 3 Kerwin Padilla M.D.* Started 25-Mar-2015 [id number] GM Tube Lisinopril-Hydrochlorothiazide 20-12.5 MG Oral Tablet [...] Procedure Dates Details History of Knee Surgery XRay KNEE-Left Ordered:25-Mar-2015 Immunization Name Dates Details Immunizations not documented Family History Grandmother* Name Dates Details Family history of myocardial infarction (V17.3, Z82.49) Status: Active Grandmother* Name Dates Details Family history of cerebrovascular accident (CVA) (V17.1, Z82.3) Status: Active Grandfather* Name Dates Details Family history of Automobile accident (E819.9, V89.2XXA) Status: Active Social History Name Dates Details Smoking Status* Current some day smoker Vital Signs Date Test Result Details 25-Mar-2015 11:32 BP Systolic 182 mm[Hg] Status: BP Diastolic 120 mm[Hg] Status: Heart Rate 102 /min Status: Respiration Rate 20 /min Status: Height 74 in Status: Weight 372.125 lb Status: O2 SAT 95 % Status: Body Mass Index Calculated 47.78 kg/m2 Status: Body Surface Area Calculated 2.83 m2 Status: Results Date Description Value Details Results not [...]
--- OUTSIDE RECORDS SUMMARY | 2016-11-01 15:07 | XMS REPORT ---
Author Oswaldo Rollins Organization eClinicalWorks Address Unknown Phone Unavailable Care Team Providers Care Online Marketing Strategist Name Role Phone Oswaldo Pulliam CP Unavailable Allergies, Adverse Reactions, Alerts Substance Reaction Event Type Penicillin G Potassium Info Not Available Drug Allergy Problems Problem Type Condition Code Onset Dates Condition Status Problem HTN (hypertension) I10 Active Assessment HTN (hypertension) I10 Active Problem Osteoarthritis M19.90 Active Assessment Osteoarthritis M19.90 Active Medications Medication Code System Code Instructions Start Date End Date Status Dosage Amlodipine Besylate [facility] [address]-95 5 MG Orally Once a day December 23, [address] [facility] [address]-89 20-12.5 MG November 27, 2012 Jun 04, 9999 take 1 tablet by oral route once daily Atenolol [facility] [address]-31 50 MG Orally Once a day 1 tablet Hydrocodone-Acetaminophen [facility] [address]-88 5-325 MG Orally every 6 hrs December 23, 2015 Jan 22, 2016 1 tablet as needed Zolpidem Tartrate [facility] [address]-84 10 MG Orally Once a day 1 tablet at bedtime as needed [place] [facility] [address]-82 5-325 MG Orally every 6 hrs 1 tablet as needed Procedures Procedure Coding System Code Date OFFICE VISIT EST PATIENT LEVEL 3 CPT-4 82955 December 23, 2015 Vital Signs Date/Time: December 23, 2015 BMI 46.09 Index Weight 368.8 lbs Height 75 in Blood Pressure Diastolic 110 mm Hg Blood Pressure Systolic 142 mm Hg Cardiac Monitoring Heart Rate 62 /min Temperature 98.2 F Respiratory Rate 18 /min Results No Known Results Summary Purpose eClinicalWorks Submission
--- OUTSIDE RECORDS SUMMARY | 2016-11-01 15:07 | XMS REPORT | Summary of Care ---
Author Author Kerwin Padilla M.D. Organization Unknown Address Unknown Phone Unavailable Care Team Providers Care Coal Deliverer Name Role Phone Kerwin Padilla M.D. Unavailable Unavailable Kerwin Padilla PP Unavailable Unavailable Unavailable Functional Status Functional Status Health Issues* Name Dates Details Functional status health issues are not documented Status: Cognitive Status Health Issues* Name Dates Details Cognitive status health issues are not documented Status: Problems Name Dates Details High risk medication use (V58.69, Z79.899) Status: Active Elevated liver enzymes (790.5, R74.8) Status: Active Essential hypertension, benign (401.1, I10) Status: Active Osteoarthritis of both knees, unspecified osteoarthritis type (715.96, M17.0) Status: Active Morbid obesity (278.01, E66.01) Status: Active Acute bacterial pharyngitis (462, J02.8) Status: Active Insomnia (780.52, G47.00) Status: Active Medications Name Dates Details Hydrocodone-Acetaminophen 5-325 MG Oral Tablet TAKE 1 TABLET EVERY 6 HOURS NEEDED.Max 4 per day*MUST LAST 30 DAYSMAY FILL ON OR AFTER 09/29/15* Quantity: 120 Kerwin Padilla M.D.* Started 25-Mar-2015 ActiveZolpidem Tartrate 10 MG Oral Tablet TAKE 1 TABLET AT BEDTIME NEEDED FOR SLEEP.*MUST LAST 30 DAYS*MAY FILL ON OR AFTER 09/29/15* * Quantity: 30 Refills: 0 Kerwin Padilla M.D.* Started 25-Mar-2015 ActiveLisinopril-Hydrochlorothiazide 20-12.5 MG Oral Tablet TAKE ONE TABLET [...] Refills: 6 Kerwin Padilla M.D.* Started 04-May-2015 ActiveZithromax Z-[place] 250 MG Oral Tablet TAKE 2 TABLETS ON DAY 1 THEN TAKE 1 TABLET A DAY FOR 4 DAYS. * Quantity: 1 Refills: 0 Kerwin Padilla M.D.* Started 28-Aug-2015 Ended 02-Sep-2015 Active6 Tablet Disp Pack Allergies and Adverse Reactions Name Dates Details [...] Procedure Dates Details History of Knee Surgery Procedures not documented Immunization Name Dates Details Diphtheria-Tetanus Toxoids 6.7-5 LFU/0.5ML Intramuscular Injectable Administered on:16-Aug-2013 Fluvirin Intramuscular Injectable Administered on:27-Mar-2015 Family History [...] smoker Vital Signs Date Test Result Details 28-Aug-2015 09:55 BP Systolic 150 mm[Hg] Status: BP Diastolic 110 mm[Hg] Status: Heart Rate 77 /min Status: Respiration Rate 20 /min Status: Height 74 in Status: Weight 369.5 lb Status: O2 SAT 97 % Status: Body Mass Index Calculated 47.44 kg/m2 Status: Body Surface Area Calculated 2.82 m2 Status: Results Date Description Value Details Results not documented Plan of Care Planned Observations* Name Dates Details Planned Goals not documented Goal Instructions * Instructions not documented Encounters Appointment; Kerwin Padilla Encounter Diagnosis: Problem not documented On 28-Aug-2015 09:15 Appointment; Kerwin Padilla Encounter Diagnosis: Problem not documented On 29-Jun-2015 09:15 Appointment; Kerwin Padilla Encounter Diagnosis: Problem not documented On 04-May-2015 10:15 Appointment; Kerwin Padilla Encounter Diagnosis: Problem not documented On 25-Mar-2015 11:00 Appointment; Oswaldo Sweeney Encounter Diagnosis: Problem not documented On 31-Oct-2014 11:15 Appointment; Farideh Babcock Encounter Diagnosis: Problem not documented On 29-Jul-2014 12:45
--- OUTSIDE RECORDS SUMMARY | 2016-11-01 15:07 | XMS REPORT ---
Author Author Oswaldo Pulliam Organization [facility] Address [address] [place], [place] [address] Care Team Providers Care Correctional Supply Supervisor Name Role Phone Oswaldo Pulliam Unavailable [phone] PROBLEMS Type Condition ICD9-CM Code RJB52-OR Code Onset Dates Condition Status SNOMED Code Problem Eczema L30.9 Active 28459163 Problem Erectile dysfunction N52.9 Active 933973453 Problem HTN (hypertension) I10 Active 37288315 Problem Insomnia G47.00 Active 896807554 Problem Osteoarthritis M19.90 Active 390966475 ALLERGIES Unknown Allergies SOCIAL HISTORY No smoking Hx information available PLAN OF CARE VITAL SIGNS MEDICATIONS Medication Instructions Dosage Frequency Start Date End Date Duration Status [place] 5-325 MG Orally every 6 hrs 1 tablet as needed 6h 30 days Active RESULTS No Results PROCEDURES No Known procedures IMMUNIZATIONS No Known Immunizations
--- OUTSIDE RECORDS SUMMARY | 2016-11-01 15:07 | XMS REPORT ---
Author Evonne Hendrix Organization eClinicalWorks Address Unknown Phone Unavailable Care Team Providers Care Elementary Reading Tutor Name Role Phone Evonne Infante CP Unavailable Allergies No Known Allergies Problems Problem Type Condition Code Onset Dates Condition Status Problem Osteoarthritis M19.90 Active Problem HTN (hypertension) I10 Active Problem Insomnia G47.00 Active Medications No Known Medications Results No Known Results Summary Purpose eClinicalWorks Submission
--- OUTSIDE RECORDS SUMMARY | 2016-11-01 15:07 | XMS REPORT ---
Author Oswaldo Rollins Organization eClinicalWorks Address Unknown Phone Unavailable Care Team Providers Care Oxygen Equipment Technician Name Role Phone Oswaldo Pulliam CP Unavailable Allergies No Known Allergies Problems Problem Type Condition Code Onset Dates Condition Status Problem Osteoarthritis M19.90 Active Problem HTN (hypertension) I10 Active Problem Insomnia G47.00 Active Medications No Known Medications Results No Known Results Summary Purpose eClinicalWorks Submission
--- OUTSIDE RECORDS SUMMARY | 2016-11-01 15:07 | XMS REPORT ---
Author Oswaldo Rollins [facility] eClinicalWorks Address Unknown Phone Unavailable Care Team Providers Care Air Filler Name Role Phone Oswaldo Pulliam CP Unavailable Allergies No Known Allergies Problems Problem Type Condition Code Onset Dates Condition Status Problem Osteoarthritis M19.90 Active Problem HTN (hypertension) I10 Active Problem Insomnia G47.00 Active Medications Medication Code System Code Instructions Start Date End Date Status Dosage Zolpidem Tartrate [facility] [address]-57 10 MG Orally Once a day 1 tablet at bedtime as needed [place] [facility] [address]-60 5-325 MG Orally every 6 hrs Mar 19, 2016 1 tablet as needed Results No Known Results Summary Purpose eClinicalWorks Submission
--- OUTSIDE RECORDS SUMMARY | 2016-11-01 15:07 | XMS REPORT ---
Author Author Veronica Hugo [facility] Address [address] [place], [place] [address] Care Team Providers Care Sewer Pipe Offbearer Name Role Phone Veronica Hugo Unavailable [phone] PROBLEMS Type Condition ICD9-CM Code [id number] Code Onset Dates Condition Status SNOMED Code Problem Eczema L30.9 Active 99226733 Problem Erectile dysfunction N52.9 Active 614636924 Problem HTN (hypertension) I10 Active 54875359 Problem Insomnia G47.00 Active 619670098 Problem Osteoarthritis M19.90 Active 507484549 ALLERGIES Unknown Allergies SOCIAL HISTORY No smoking Hx information available PLAN OF CARE VITAL SIGNS MEDICATIONS Medication Instructions Dosage Frequency Start Date End Date Duration Status Zolpidem Tartrate 10 MG Orally Once a day 1 tablet at bedtime as needed 24h 30 days Active RESULTS No Results PROCEDURES No Known procedures IMMUNIZATIONS No Known Immunizations
--- OUTSIDE RECORDS SUMMARY | 2016-11-01 15:07 | XMS REPORT | Summary of Care ---
Author Author Valerie Owen, Kerwin Organization Unknown Address Unknown Phone Unavailable Care Team Providers Care Head Of Merchandise Buying Name Role Phone Kerwin Padilla M.D. Unavailable [...] Active Morbid obesity (278.01, E66.01) Status: Active Tobacco abuse (305.1, Z72.0) Status: Active Elevated liver enzymes (790.5, R74.8) Status: Active Medications Name Dates Details Hydrocodone-Acetaminophen 5-325 MG Oral Tablet TAKE 1 TABLET EVERY 6 HOURS NEEDED.Max 4 per day*MUST LAST 30 DAYSMAY FILL ON OR AFTER 07/30/15* Quantity: 120 Kerwin Padilla M.D.* Started 25-Mar-2015 ActiveZolpidem Tartrate 10 MG Oral Tablet TAKE 1 TABLET AT BEDTIME NEEDED FOR SLEEP.*MUST LAST 30 DAYS*MAY FILL ON OR AFTER 07/30/15* * Quantity: 30 Refills: 0 Kerwin Padilla M.D.* Started 25-Mar-2015 ActiveVoltaren 1 % Transdermal Gel APPLY 4 GM OF GEL TO AFFECTED AREA TWICE DAILY. DO NOT APPLY MORE THAN 16 GM DAILY TO ANY ONE AFFECTED JOINT. * Quantity: 1 Refills: 3 Kerwin Padilla M.D.* Started 25-Mar-2015 [id number] GM Tube Lisinopril-Hydrochlorothiazide 20-12.5 MG Oral Tablet [...] Procedures not documented Immunization Name Dates Details Fluvirin Intramuscular Injectable [...] smoker Vital Signs Date Test Result Details 29-Jun-2015 09:39 BP Systolic 136 mm[Hg] Status: BP Diastolic 90 mm[Hg] Status: Heart Rate 78 /min Status: Respiration Rate 20 /min Status: Height 74 in Status: Weight 369.25 lb Status: O2 SAT 94 % Status: Body Mass Index Calculated 47.41 kg/m2 Status: Body Surface Area Calculated 2.82 m2 Status: Results Date Description Value Details Results not documented Plan of Care Planned Observations* Name Dates Details Planned Goals not documented Goal Planned Encounters* Appointment; Provider: Kerwin Padilla On 28-Aug-2015 09:15 Instructions * Instructions not documented Encounters [...]
--- OUTSIDE RECORDS SUMMARY | 2016-11-01 15:07 | XMS REPORT | Summary of Care ---
Author Author Oswaldo Sweeney D.O. Organization Unknown Address [address] [place], [place] [address] Phone Unavailable Care Team Providers Care Manager Java Name Role Phone No Assigned PCP-Pt Confirmed [...] Blood in urine (599.70, R31.9) Status: Active Acute prostatitis (601.0, N41.0) Status: Active Medications Name Dates Details Medication not documented Allergies and Adverse Reactions Name Dates Details Penicillins Status: Active Past Medical History Name Dates Details History of hypertension (V12.59, Z86.79) Status: Resolved Procedures Procedure Dates Details Procedures not documented Immunization Name Dates Details Immunizations not documented Social History Smoking Status* Unknown if ever smoked Vital Signs Date Test Result Details No [...]
--- OUTSIDE RECORDS SUMMARY | 2016-11-01 15:07 | XMS REPORT ---
Author Author Veronica Hugo [facility] Address [address] [place], [place] [address] Care Team Providers Care Croze Cutter Name Role Phone Veronica Hugo Unavailable [phone] PROBLEMS Type Condition ICD9-CM Code NLT01-CG Code Onset Dates Condition Status SNOMED Code Problem Insomnia G47.00 Active 846926433 Problem Osteoarthritis M19.90 Active 427886517 Problem HTN (hypertension) I10 Active 22439150 ALLERGIES Unknown Allergies SOCIAL HISTORY No smoking Hx information available PLAN OF CARE VITAL SIGNS MEDICATIONS Medication Instructions Dosage Frequency Start Date End Date Duration Status [place] 5-325 MG Orally every 6 hrs 1 tablet as needed 6h 30 days Active RESULTS No Results PROCEDURES No Known procedures IMMUNIZATIONS No Known Immunizations
--- OUTSIDE RECORDS SUMMARY | 2016-11-01 15:07 | XMS REPORT ---
Author Oswaldo Rollins [facility] eClinicalWorks Address Unknown Phone Unavailable Care Team Providers Care Residential Concierge Name Role Phone Oswaldo Pulliam CP Unavailable Allergies No Known Allergies Problems Problem Type Condition Code Onset Dates Condition Status Problem Osteoarthritis M19.90 Active Problem HTN (hypertension) I10 Active Problem Insomnia G47.00 Active Medications Medication Code System Code Instructions Start Date End Date Status Dosage Zolpidem Tartrate [facility] [address]-12 10 MG Orally Once a day 1 tablet at bedtime as needed Results No Known Results Summary Purpose eClinicalWorks Submission
--- OUTSIDE RECORDS SUMMARY | 2016-11-01 15:07 | XMS REPORT ---
Author Author Gonsalo Sutton Organization eClinicalWorks Address Unknown Phone Unavailable Care Team Providers Care Mobile Disc Jockey Name Role Phone Gonsalo Sutton CP Unavailable Allergies, Adverse Reactions, Alerts Substance Reaction Event Type N.K.D.A. Info Not Available Non Drug Allergy Problems Problem Type Condition ICD-9 Code Onset Dates Condition Status Assessment Health examination of defined subpopulation V70.5 Active Problem Health examination of defined subpopulation V70.5 Active Medications Medication Code System Code Instructions Start Date End Date Status Dosage Lisinopril-Hydrochlorothiazide Unknown 0 20-12.5 mg November 27, 2012May Active take 1 tablet by oral route once daily Procedures Procedure Coding System Code Date Esstional Function Test CPT-4 EFT Feb 17, 2014 UNLISTED E&M SERVICE CPT-4 61623 Feb 17, 2014 Vital Signs Date/Time: Feb 17, 2014 Weight 342 lbs Height 75 in Blood Pressure Diastolic 92 mm Hg Blood Pressure Systolic 150 mm Hg Cardiac Monitoring Heart Rate 88 /min Temperature 98.1 F Respiratory Rate 20 /min Results TEST-ESSENTIAL FUNCTION TEST Summary Purpose eClinicalWorks Submission
--- OUTSIDE RECORDS SUMMARY | 2016-11-01 15:07 | XMS REPORT | Summary of Care ---
Author Author Oswaldo Sweeney D.O. Organization Unknown Address [address] [place], [place] [address] Phone Unavailable Care Team Providers Care Bone Process Operator Name Role Phone Dari Sweeney D.O. Unavailable Unavailable No Assigned PCP-Pt Confirmed PP Unavailable Unavailable [...] N41.0) Status: Active Medications Name Dates Details Ciprofloxacin HCl - 500 MG Oral Tablet TAKE 1 TABLET TWICE DAILY. Quantity: 20 Oswaldo Sweeney D.O.* Started 31-Oct-2014 Ended Active Allergies and Adverse Reactions Name Dates Details Penicillins Status: Active Past Medical History Name Dates Details History of hypertension (V12.59, Z86.79) Status: Resolved Procedures Procedure Dates Details Urinalysis, Reflex to Microscopic or Culture PRN 8005 Ordered:31-Oct-2014 Immunization Name Dates Details Immunizations not [...] Negative-2+ EPITH 0-2 /HPF (Better) Range: 0-10 12:47 ULTRASOUND RENAL SONO Comments: Exam Date: 10/31/2014 12: 30Dictation Date: 10/31/2014 12:47 XS RENAL SONO (Better) Plan of Care Planned Observations* Name Dates Details Planned Goals not documented Goal Instructions * Instructions not documented Encounters Appointment; Oswaldo Sweeney Encounter Diagnosis: Problem not documented On 31-Oct-2014 11:15 Appointment; Farideh Babcock Encounter Diagnosis: Problem not documented On 29-Jul-2014 12:45
--- OUTSIDE RECORDS SUMMARY | 2016-11-01 15:07 | XMS REPORT | Summary of Care ---
Author Author Oswaldo Sweeney D.O. Organization Unknown Address [address] [place], [place] [address] Phone Unavailable Care Team Providers Care Lobsterman Name Role Phone No Assigned PCP-Pt Confirmed [...] symptom or sign (788.99, R39.89) Status: Active Medications Name Dates Details Medication [...]
--- OUTSIDE RECORDS SUMMARY | 2016-11-01 15:08 | XMS REPORT ---
Author Oswaldo Rollins Organization eClinicalWorks Address Unknown Phone Unavailable Care Team Providers Care Senior Managing Director Name Role Phone Oswaldo Pulliam CP Unavailable Allergies No Known Allergies Problems Problem Type Condition Code Onset Dates Condition Status Problem Osteoarthritis M19.90 Active Problem HTN (hypertension) I10 Active Problem Insomnia G47.00 Active Medications No Known Medications Results No Known Results Summary Purpose eClinicalWorks Submission
--- OUTSIDE RECORDS SUMMARY | 2016-11-01 15:08 | XMS REPORT | Summary of Care ---
Author Author Valerie Owen, Kerwin Organization Unknown Address Unknown Phone Unavailable Care Team Providers Care Bridge Club Manager Name Role Phone Kerwin Padilla M.D. Unavailable [...] Refills: 3 Kerwin Padilla M.D.* Started 25-Mar-2015 [id number] GM Tube Lisinopril-Hydrochlorothiazide 20-12.5 MG Oral Tablet [...] History of Knee Surgery Hepatitis Panel (4) [id number] Ordered:04-May-2015 Immunization Name Dates Details Fluvirin Intramuscular [...] ml/min (Better) Range: >60 EST GFR, NON-AFR [place] >60 ml/min (Better) Range: >60 Comments: EST GFR is reported in ml/min per 1.73 m2 of body surface area. For -[place], please multiple result by 1.2.----- GLUCOSE 93 [...]
[2016-11-01] MEDS ORDERED: ATEN50TA PO (15:25)
[2016-11-01] MEDS ORDERED: LISI1TAB11 PO (15:27)
[2016-11-01] MEDS ORDERED: HYDR-3989 PO (15:28)
--- NOTE | 2016-11-01 15:30 | NUR ---
REPORT TO DEMETRIS MILLAN
--- OUTSIDE RECORDS SUMMARY | 2016-11-01 15:44 | XMS REPORT | Continuity of Care Document ---
Author Author [facility] Organization [facility] Address Unknown Phone Unavailable Support Name Relationship Address Phone ALYSON DORSEY MD Caregiver [address] [place] [phone] NANI ANTHONY MD Caregiver [address] [place], [place] [id number] STEPHON KNIGHT Next Of Kin [address] [place], [place] [id number] Insurance Providers Payer Name Policy Number Subscriber Name Relationship [employer] Other [id number] Zaira Knight 17 Self Advance Directives Directive [...] of your legs. 3.During office hours, call [phone] 4. After hours, please call [facility] at [phone], and have the mill control operator page your Surgeon IN THE EVENT OF AN EMERGENCY, seek medical care at the nearest Emergency Room Condition at time of discharge: Good Care Plan Discharge Patient: Goal: Maximum functional status Patient Instructions: see patient instructions Plan of Care Discharge Date 12/29/13 11:24am Disposition 01 DISCHARGED HOME, SELF-CARE Instructions/Education Provided [facility] Orthopedic Dismissal Prescriptions See Medications Section Functional [...] F (96.8 - 99.1) Temperature (Calculated Celsius) 35.76670 degrees C (36.0 - 37.3) Temperature Source [...] 16, 2013 8:09pm LAB TEST FORM REQUEST [id number] - Lipase November 19, 2007 9:13am 36 [...] 2013 5:45pm 1-3 /HPF - Urine Specific [place] December 16, 2013 5:45pm >=1.030 H - [...] N 4.5-11.0 Name: ZAIRA KNIGHT Unit #: [id number] : [id number] Sex: M Loc / Svc: MED DOS: Signed Report #: [id number] DIAGNOSTIC IMAGING REPORT TYPE OF EXAM: US [...] MD Encounters Encounter Location Date/Time Discharged Inpatient [facility] 12/24/13 5:30am Registered Clinic [facility] 12/16/13 5:32pm Registered [facility] 11/19/13 12:47pm Recent Diagnosis Degenerative arthritis of right knee Obesity, morbid, BMI 40.0-49.9
--- NOTE | 2016-11-01 16:07 | ERPDOC ---
Departure Disposition Decision Date: November 01, 2016 Disposition Decision Time: 17:06 Disposition: 01 DISCHARGED HOME, SELF-CARE Impression Impression Impression: Primary Impression: Back pain Back pain location: back pain in unspecified location Chronicity: chronic Back pain laterality: unspecified Qualified Codes: G89.29 - Other chronic pain; M54.9 - Dorsalgia, unspecified Severity: Moderate Condition: Improved Seen By: Physician only Referrals: ALYSON DORSEY MD (Family) 1 Day Patient Instructions: Back Pain (ED) Problems/Meds/Labs Reviewed?: Yes Medications reviewed and manag: Yes Follow up care ordered?: Yes Mental Status: Alert, Oriented Scripts Naproxen (Naprosyn) 500 Mg Tablet 1 TAB PO BID Y for PAIN for 10 Days, #20 TAB 0 Refills Prov: WIN GARNETT DO 11/01/16 Hydrocodone/Acetaminophen (Chestnut 7.5-325 Tablet) 7.5-325 Tablet 1 TAB PO Q4HR Y for PAIN for 3 Days, #18 TAB 0 Refills Prov: IWN GARNETT DO 11/01/16 Cyclobenzaprine HCl (Cyclobenzaprine HCl) 10 Mg Tablet 10 MG PO TID Y for MUSCLE SPASM for 5 Days, #15 TAB 0 Refills Prov: WIN GARNETT DO 11/01/16 HPI - Back Pain General Chief Complaint: Back Pain or Injury Stated Complaint: SEVERE BACK BACK PAIN Time Seen by Provider: 15:25 Source: patient Exam Limitations: no limitations HPI - Back Pain Initial Comments 51-year-old male presents to the emergency department with a chief complaint of back pain. Patient noted onset of symptoms over 1 month ago. Symptoms have been persisted in nature since onset. Patient notes that he works as a driver lifter of sanitation truck and pulls on hoses from his truck on a daily basis which exacerbates the pain. Patient noted the onset of pain one day after pulling on the hoses. Patient describes his pain as sharp. It is moderate in nature. No radiation. It is spasmodic. Patient notes that the pain improves with Chestnut. He denies any other complaints or associated symptoms. No trauma or injury. Patient denies any numbness, tingling, fever, chills, saddle anesthesia, loss of bowel or bladder control, IV drug abuse, recent procedures on the spine, abdominal pain, anticoagulation, focal weakness or other warning signs of back pain. Occurred At: home Onset/Timing: Constant Allergies: Coded Allergies: Penicillins (Verified Allergy, Intermediate, RASH, 11/01/16) Past History Past Medical History Metabolic: hypertension Surgical History Joint: knee Family History Family History: Negative Vaccines Hx Influenza Vaccination: Yes (06/2013) Hx Pneumococcal Vaccination: No Social History Smoking Status: Never smoker Substance Use Type: does not use Alcohol Intake: none Review of Systems Constitutional Constitutional: DENIES: chills, fever Eyes General: DENIES: erythema, exudate Lids/Accessories: DENIES: erythema, swelling Vision: DENIES: acuity, blurring ENMT Ears: DENIES: drainage, erythema Hearing: DENIES: hearing loss Balance: DENIES: ataxia, falling to one side Sinuses: DENIES: congestion, pain Nose: DENIES: nosebleeds, pain Mouth/Throat: DENIES: painful swallowing, sore throat Teeth: DENIES: pain Jaw: DENIES: pain Cardiovascular Cardiac: DENIES: chest pain, dyspnea on exertion Rhythm/Rate: DENIES: irregular beat, palpitations Vascular: DENIES: pedal edema, unilateral swelling Pulmonary Respiratory: DENIES: cough, dyspnea, pleuritic chest pain, sputum GI Upper Abdomen: DENIES: nausea, pain, vomiting Lower Abdomen: DENIES: diarrhea, pain General: DENIES: burning, dysuria, frequency, urgency Musculoskeletal General: DENIES: joint pain, tenderness Integumentary Skin: DENIES: itching, rash Neurological General: DENIES: change in strength, headache, numbness, weakness Psychiatric Psychiatric: DENIES: emotional instability, suicidal ideation/attempt Endocrine Endocrine: DENIES: polydipsia, polyphagia Hematologic/Lymphatic Hematologic/Lymphatic: DENIES: frequent nosebleeds, lymphadenopathy Allergic/Immunological Allergic/Immunoligical: DENIES: allergic reactions, hives Physical Exam General General Nourishment: well nourished, well developed, appears stated age, no acute distress, adult General Body Habitus: well groomed Vitals and Pain First Documented Vital Signs Date Time Temp Pulse Resp B/P Pulse Ox O2 Delivery O2 Flow Rate FiO2 11/01/16 15:03 98.2 97 16 144/85 94 Room Air Weight: Kilograms: 172.600 Height (feet): 6 Height (inches): 2.00 Triage Pain Scale: RN VS reviewed by Provider: Yes Normal Exams: Head: Normocephalic w/o trauma Eyes: Pupils are PERRLA w/ EOMI, No scleral icterus, irritation, or foreign bodies noted ENMT: No facial trauma, nasal exudates, pharyngeal erythema, or exudates are noted Dental: No fractured, loose, or missing teeth noted Neck: Full range of motion, without adenopathy, JVD, bruits or thyromegaly Chest/Resp: Clear all holm, with good airflow, and symmetry bilaterally CV: Regular rate and rhythm, without murmur or gallop, Pulses 2+ all extremities, capillary refill, <2 seconds all ext., no pedal edema noted Abdomen: Bowel sounds positive, soft, non-tender, non-distended, no hepatosplenomegaly, masses or bruits noted Lymphatic: No lymphadenopathy, or lymphedema noted Musculoskeletal: No tenderness, or deformity noted, good range of motion, all extremities Integumentary: No rashes, hives, or bruising noted, hair and nails, without abnormality Neurologic: Patient is alert, and oriented, cranial nerves, motor/sensory/ cerebellar, exams w/o gross deficits, to observation Psychiatric: Patient exhibits, appropriate attention, emotion and affect Musculoskeletal (brief) Comments No midline tenderness or deformity in the cervical spine. No midline tenderness or deformity of the thoracic/lumbar spine. Patient does have generalized tenderness to palpation in the thoracic/lumbar spine with muscle spasm in the paraspinal muscles bilaterally. Neurologic (brief) Comments Alert and oriented 4. CN 2-12 intact. Sensation intact. Strength normal. Gait normal. Normal coordination. Normal motor. Absent Babinski bilaterally. Reflexes 2/4 in all extremities. Unremarkable neurologic examination. No focal neurologic deficit. Normal speech. Differential Diagnoses Considering: Fracture, Lumbar Sprain, Lumbar Strain, Thoracic Sprain, Thoracic Strain Progress Results/Orders Orders Procedure Category Date Status Time Thoracic Spine RAD 11/01/16 Resulted Series, 3 View 15:45 Lumbar Spine 2-3 Views RAD 11/01/16 Resulted 15:45 Hydrocodone/Acetaminophen PHA 11/01/16 Complete (Chestnut 7.5/325 17:15 Medications Current ED Medications Acetaminophen/ Hydrocodone Bitart (Chestnut 7.5/325) 1 tab O ONCE PO Last administered on 11/01/16t 17:17; Start 11/01/16 at 17:15; Stop 11/01/16 at 17:16 ; Status DC Progress Progress Imaging was reviewed in detail with the patient and questions are answered. Patient was given analgesic pain medication with improvement of symptoms. The slightly suboptimal nature of the images secondary to the patient's body habitus was discussed in detail with the patient who verbalizes agreement and understanding. Patient is aware that small fractures could potentially be missed due to this. He is offered CT scan of the thoracic/lumbar spine which he declines. Patient is discharged home with prescriptions for Chestnut, Flexeril , and Naprosyn. He is in agreement with the current plan of management. Patient is to follow up as instructed. Patient is to return to the emergency Department if his condition worsens or changes in any manner. Xray Xray : Xray: T-Spine Interpretation: Normal (lumbar spine: Negative), Reviewed Written Report WIN GARNETT DO November 01, 2016 16:07
--- NOTE | 2016-11-01 16:47 | DI ---
Indication: ITS.REASON: Severe back pain PROCEDURE: THORACIC SPINE SERIES, 3 VIEW: Encounter: Initial Comparison: None Findings: Alignment of the thoracic spine is within normal limits. No definite acute fracture identified. Prominent bridging osteophytes in the mid to lower thoracic region compatible with DISH. Limited visualization of the upper thoracic vertebrae on the lateral view. Poor visualization of the T12 vertebra on the frontal view due to body habitus. Impression: No acute fracture. .
--- NOTE | 2016-11-01 17:02 | DI ---
Indication: ITS.REASON: Severe back pain PROCEDURE: LUMBAR SPINE 3 VIEWS: Encounter: Initial Comparison: None Findings: Alignment of the lumbar spine is abnormal with evidence of L5 spondylolysis and grade 1 spondylolisthesis of L5 on S1. No acute fracture identified. Mild disk space narrowing at L4-L5. Degenerative facet change at L5-S1. Impression: No acute fracture. Bilateral L5 spondylolysis with spondylolisthesis of L5 on S1. .
[2016-11-01] MEDS ORDERED: NAPR500T PO (17:08)
[2016-11-01] MEDS ORDERED: HYDR-347 PO (17:08)
[2016-11-01] MEDS ORDERED: CYCL-375 PO (17:08)
[2016-11-01 17:21] VITALS: BP 138/104; PULSE 76; RESP 19; O2SAT 91
== END 2016-11-01 17:21 | disposition home or self-care (01) ==
LOC: ED 15:02
DX: M54.6 Pain in thoracic spine (principal); M54.5 Low back pain; M62.830 Muscle spasm of back; G89.29 Other chronic pain